=== PATIENT | female | born 2000 | race Caucasian/White ===

== ENCOUNTER 2021-12-06 19:12 | Emergency (ER) | payer SELFPAY ==
[~2021-12-06] VITALS: Ht 165.1 cm; Wt 56.8 kg
[2021-12-06 19:36] VITALS: BP 134/84
--- NOTE | 2021-12-06 21:08 | NUR ---
Patient taken to bed 8.
--- NOTE | 2021-12-06 21:21 | NUR ---
Dr. Rangel evaluating patient at bedside.
[2021-12-06] MEDS: ONDANSETRON 4 MG ODT PO ONE (21:36)
--- NOTE | 2021-12-06 21:53 | NUR ---
Patient taken to CT via [facility]
[2021-12-06] MEDS: ACETAMINOPHEN 650 MG/20.3 ML UDC PO ONE (23:39)
[2021-12-06 23:52] VITALS: BP 134/84
--- NOTE | 2021-12-06 23:52 | NUR ---
Patient discharged with v/s stable. Written and verbal after care instructions given and explained. Patient verbalized understanding. Ambulatory with steady gait. All questions addressed prior to discharge. Advised to follow up with PMD.
== END 2021-12-06 23:52 | disposition home or self-care (01) ==
LOC: MED 19:12
DX: S09.90XA Unspecified injury of head, initial encounter (principal); M54.9 Dorsalgia, unspecified; F17.290 Nicotine dependence, other tobacco product, uncomplicated; Z98.890 Other specified postprocedural states; W19.XXXA Unspecified fall, initial encounter; Y93.01 Activity, walking, marching and hiking; Y92.090 Kitchen in other non-institutional residence as the place of occurrence of the external cause; Y99.8 Other external cause status
CPT/HCPCS: 70450; 99284; Q0162